=== PATIENT | female | born 1970 | race Caucasian/White ===

== ENCOUNTER → 2019-06-14 17:03 | Outpatient (BNVA) | payer BC, SELFPAY | PROVIDERS: Family Provider Nurse Practitioner Family; PCP Nurse Practitioner Family; Visit Provider Nurse Practitioner Family | DX: R05 Cough (principal); Z20.828 Contact with and (suspected) exposure to other viral communicable diseases | CPT/HCPCS: 87804 ==

== ENCOUNTER → 2019-06-20 11:38 | Outpatient (BNVA) | payer BC, SELFPAY | PROVIDERS: Family Provider Nurse Practitioner Family; PCP Nurse Practitioner Family; Visit Provider Nurse Practitioner Family | DX: I10 Essential (primary) hypertension (principal); Z20.828 Contact with and (suspected) exposure to other viral communicable diseases | CPT/HCPCS: 80053; 85025 ==

== ENCOUNTER → 2020-06-25 14:40 | Outpatient (BNVA) | payer BC, SELFPAY | PROVIDERS: Family Provider Nurse Practitioner Family; PCP Nurse Practitioner Family; Visit Provider Nurse Practitioner Family | DX: I10 Essential (primary) hypertension (principal); M79.662 Pain in left lower leg | CPT/HCPCS: 80053; 80061; 84443; 85025 ==

== ENCOUNTER 2020-06-26 15:07 | Outpatient (CLI) | payer BC, SELFPAY ==
--- NOTE | 2020-06-26 15:15 | USCV_ITS ---
Araseli Arredondo Age: 49 Gender: F : 1970 Exam Date: 06/26/2020 16:06 Ordering Phys: Tresa Mcdowell [employer]PER[employer] Technologist: [email or web address] Exam Location: [facility] – [place] Indication: PAIN IN LEFT CALF PROCEDURES: Venous duplex imaging was performed in only the left lower extremity. The following venous structures were evaluated: common femoral vein, profunda vein, proximal portion of the greater saphenous vein, superficial femoral vein, and the popliteal vein. In addition, the posterior tibial and peroneal trunk were evaluated. Serial compression, augmentation maneuvers, and spectral Doppler flow evaluation were performed. FINDINGS: Normal 2-D Doppler and augmentation and compressibility throughout the lower extremity venous structures. Additional imaging through the proximal calf veins also reveals no thrombus. Limited evaluation of the greater saphenous vein is patent with no thrombus. CONCLUSIONS No DVT left lower extremity. Dr. Desi Villalpando DO (Electronically Signed) Final Date: 27 June 2020 08:48 S
== END 2020-06-26 15:08 | disposition home or self-care (01) ==
PROVIDERS: Family Provider Nurse Practitioner Family; PCP Nurse Practitioner Family; Visit Provider Nurse Practitioner Family
DX: M79.662 Pain in left lower leg (principal)
CPT/HCPCS: 93971

== ENCOUNTER → 2021-08-11 11:14 | Outpatient (BNVA) | payer BC, SELFPAY | PROVIDERS: Family Provider Nurse Practitioner Family; PCP Nurse Practitioner Family; Visit Provider Nurse Practitioner Family | DX: R53.1 Weakness (principal); R53.83 Other fatigue; N92.0 Excessive and frequent menstruation with regular cycle; F32.4 Major depressive disorder, single episode, in partial remission; I10 Essential (primary) hypertension; E66.9 Obesity, unspecified | CPT/HCPCS: 80053; 80061; 82306; 82607; 82746; 83550; 84443 ==

== ENCOUNTER → 2021-11-25 11:27 | Outpatient (BNVA) | payer BC, SELFPAY | PROVIDERS: Family Provider Nurse Practitioner Family; PCP Nurse Practitioner Family; Visit Provider Nurse Practitioner Family | DX: I10 Essential (primary) hypertension (principal); E78.00 Pure hypercholesterolemia, unspecified; D64.9 Anemia, unspecified; L03.90 Cellulitis, unspecified; L01.00 Impetigo, unspecified | CPT/HCPCS: 80053 ==

== ENCOUNTER 2021-12-10 08:09 | Day surgery (SDC) | payer BC, SELFPAY ==
[2021-10-15 16:26] VITALS: BMI 44.5
[2021-12-09 08:21] VITALS: BMI 44.5
[2021-12-10 08:51] VITALS: BP 199/129; PULSE 82; RESP 18; TEMP 36.4; O2SAT 99
[2021-12-10] MEDS: sodium chloride 0.9% 1,000 ML 30 ML IV (08:58)
[2021-12-10 08:59] LABS: OR HCG Qualitative Urine Negative (Negative)
--- NOTE | 2021-12-10 10:44 | P.HP_ITS ---
Providers/Chief Complaint Primary Care Provider: Amelia Mcdaniel NP Chief Complaint: Colon cancer screening History of Present Illness Araseli Arredondo is a 51 year old female here for colonoscopy Medications/Allergies Home Medications Medication Instructions Recorded Confirmed Last Taken Type aspirin 81 mg tablet,delayed 81 mg PO DAILY 06/14/19 12/10/21 12/08/21 History release (Adult Low Dose Aspirin) albuterol sulfate 90 mcg/actuation 2 puff inhalation QID PRN 06/03/21 12/10/21 12/08/21 Rx aerosol inhaler (ProAir HFA) shortness of breath or wheezing #8.5 grams budesonide-formoterol HFA 160 2 puff inhalation Q12H #10.2 grams 06/03/21 12/10/21 12/08/21 Rx mcg-4.5 mcg/actuation aerosol inhaler (Symbicort) cholecalciferol (vitamin D3) 50 50 mcg PO DAILY 90 days #90 caps 08/11/21 12/10/21 12/08/21 Rx mcg (2,000 unit) capsule lisinopril 20 1 tab PO DAILY 90 days #90 tabs 08/11/21 12/10/21 12/08/21 Rx mg-hydrochlorothiazide 25 mg tablet vitamin-ferrous fumarate 1 tab PO DAILY 90 days #90 tabs 08/11/21 12/10/21 12/08/21 Rx 28 mg iron-folic acid 800 mcg tablet ( Vitamins with Minerals) simvastatin 20 mg tablet 20 mg PO .QHS 90 days #90 tabs 08/11/21 12/10/21 12/08/21 Rx sertraline 50 mg tablet (Zoloft) 50 mg PO DAILY 30 days #90 tabs 10/24/21 12/10/21 12/08/21 Rx cephalexin 500 mg capsule 500 mg PO TID 10 days #30 caps 11/24/21 12/10/21 12/08/21 Rx mupirocin 2 % topical ointment 1 applic topical BID #15 grams 11/24/21 12/10/21 12/08/21 Rx Allergies Allergy/AdvReac Type Severity Reaction Status Date / Time No Known Allergies Allergy Verified 12/10/21 08:45 PFSH Acute PFSH: Medical History Hx of menorrhagia Hypertension Surgical History Hx of section Hx of cholecystectomy Hx of tubal ligation Family History Family/Other CAD (coronary artery disease) Cancer Grandmother had colon cancer Diabetes Hypertension Social History Smoking and tobacco status: never smoked Second hand smoke exposure: No Alcohol intake: current Alcohol intake frequency: 0-2 Drinks per Day Alcohol type: beer Lives independently: Yes Household members: spouse Marital status: Current occupational status: employed Current occupation: [employer] History of recent travel: No Current gender identity: Female Vitals/I&O/Wt Last Vital Signs Temp 97.5 F L 12/10/21 08:51 Pulse 82 12/10/21 08:51 Resp 18 12/10/21 08:51 BP 199/129 12/10/21 08:51 Pulse Ox 99 12/10/21 08:51 O2 Del Method 12/10/21 08:51 Weight last 48 hrs Weight 228 lb A&P Assessment and plan (1) Screening for colon cancer: Status: Acute Plan Colonoscopy Attestations Medical Necessity Statement*: Will go home Coding Level of Care 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
--- NOTE | 2021-12-10 11:07 | P.ANESASSM_ITS ---
Pre-Anesthetic Assessment Height/Weight: Height 1.52 m Weight 103.419 kg Temp Pulse Resp BP Pulse Ox O2 Del Method 97.5 F L 82 18 199/129 99 12/10/21 08:51 12/10/21 08:51 12/10/21 08:51 12/10/21 08:51 12/10/21 08:51 12/10/21 08:51 Operation Date: 12/10/21 10:00 Proposed Procedures p Colonoscopy 79066,Z12.11(Not Applicable) - Chris Carvajal DO Familial anesthetic complications: none Last intake: Intake Last Liquid Date 12/09/21 Last Liquid Time 22:00 Last Solid Date 12/08/21 Social Alcohol (6 beers per week.) and No tobacco Airway Submandibular: within normal limits Cervical ROM: within normal limits Mallampati: Class II Dentition: full Pulmonary Bronchitis listed patient denies says it was related to a previous URI CV/HEM Hypertension None reported Hepatic None reported GI None reported Metabolic Hyperlipidemia and Morbid Obesity [facility] [place] None reported Neuropsych None reported Anesthetic Plan ASA status: 3 Anesthesia: MAC Medications/Allergies Home Medications Medication Instructions Recorded Confirmed Last Taken Type aspirin 81 mg tablet,delayed 81 mg PO DAILY 06/14/19 12/10/21 12/08/21 History release (Adult Low Dose Aspirin) albuterol sulfate 90 mcg/actuation 2 puff inhalation QID PRN 06/03/21 12/10/21 12/08/21 Rx aerosol inhaler (ProAir HFA) shortness of breath or wheezing #8.5 grams budesonide-formoterol HFA 160 2 puff inhalation Q12H #10.2 grams 06/03/21 12/10/21 12/08/21 Rx mcg-4.5 mcg/actuation aerosol inhaler (Symbicort) cholecalciferol (vitamin D3) 50 50 mcg PO DAILY 90 days #90 caps 08/11/21 12/10/21 12/08/21 Rx mcg (2,000 unit) capsule lisinopril 20 1 tab PO DAILY 90 days #90 tabs 08/11/21 12/10/21 12/08/21 Rx mg-hydrochlorothiazide 25 mg tablet vitamin-ferrous fumarate 1 tab PO DAILY 90 days #90 tabs 08/11/21 12/10/21 12/08/21 Rx 28 mg iron-folic acid 800 mcg tablet ( Vitamins with Minerals) simvastatin 20 mg tablet 20 mg PO .QHS 90 days #90 tabs 08/11/21 12/10/21 12/08/21 Rx sertraline 50 mg tablet (Zoloft) 50 mg PO DAILY 30 days #90 tabs 10/24/21 12/10/21 12/08/21 Rx cephalexin 500 mg capsule 500 mg PO TID 10 days #30 caps 11/24/21 12/10/21 12/08/21 Rx mupirocin 2 % topical ointment 1 applic topical BID #15 grams 11/24/21 12/10/21 12/08/21 Rx Allergies Allergy/AdvReac Type Severity Reaction Status Date / Time No Known Allergies Allergy Verified 12/10/21 08:45 Current Medications Generic Name Dose Route Start Last Admin Trade Name Freq PRN Reason Stop Dose Admin Sodium Chloride 1,000 mls @ 30 mls/hr 12/10/21 08:30 12/10/21 08:58 Sodium Chloride 0.9% IV 12/11/21 08:29 30 mls/hr .Q24H VASU Administration PFSH Anesthesia Medical History Hx of menorrhagia Hypertension Surgical History Hx of section Hx of cholecystectomy Hx of tubal ligation Family History Family/Other CAD (coronary artery disease) Cancer Grandmother had colon cancer Diabetes Hypertension Social History Smoking and tobacco status: never smoked Second hand smoke exposure: No Alcohol intake: current Alcohol intake frequency: 0-2 Drinks per Day Alcohol type: beer Lives independently: Yes Household members: spouse Marital status: Current occupational status: employed Current occupation: [employer] History of recent travel: No Current gender identity: Female Data Anesthesia Cardiac Studies: No Data to Display
[2021-12-10 12:04] VITALS: BP 136/83; PULSE 89; RESP 16; TEMP 36.9; O2SAT 99
[2021-12-10 12:16] VITALS: BP 136/88; PULSE 90; RESP 18; O2SAT 97
[2021-12-10 12:26] VITALS: BP 147/92; PULSE 85; RESP 18; O2SAT 98
--- NOTE | 2021-12-10 12:38 | PC.NURSE ---
1204-Received pt to post op with oral airway in. Moving air freely. O2 on at 5L per NC. 1213-Pt waking up. Oral airway removed.
--- NOTE | 2021-12-11 09:00 | ANE.PACU2 ---
Inpatient post-anesthesia follow up: Airway intact: Yes Vital signs: Temperature 98.5 F Pulse Rate 85 Respiratory Rate 18 Blood Pressure 147/92 Pulse Oximetry 98 Oxygen Delivery Me thod Room Air Oxygen Flow Rate 2 Fraction of Inspir ed Oxygen Hydration adequate: Yes Nausea and vomiting: No Pain level: 1 Mental status: Baseline
== END 2021-12-10 12:47 | disposition home or self-care (01) ==
PROVIDERS: Anesthesiology; PCP Nurse Practitioner Family; Visit Provider Surgery
PROC: 0DJD8ZZ Inspection of Lower Intestinal Tract, Via Natural or Artificial Opening Endoscopic (ICD-10-PCS; CPT 45378; principal; 2021-12-10 10:00)
DX: Z12.11 Encounter for screening for malignant neoplasm of colon (principal); D12.5 Benign neoplasm of sigmoid colon; I10 Essential (primary) hypertension; E78.5 Hyperlipidemia, unspecified; E66.01 Morbid (severe) obesity due to excess calories; Z68.41 Body mass index [BMI] 40.0-44.9, adult; Z79.82 Long term (current) use of aspirin; Z80.0 Family history of malignant neoplasm of digestive organs
CPT/HCPCS: 45385; 81025; 84703; 88305; J2704; J3490; J7030

== ENCOUNTER 2022-01-23 07:33 | Day surgery (SDC) | payer BC, SELFPAY ==
[2022-01-20 14:02] VITALS: BMI 43.9
[2022-01-23 08:16] VITALS: BP 201/101; PULSE 72; RESP 18; TEMP 36.1; O2SAT 99
[2022-01-23 08:23] LABS: OR HCG Qualitative Urine Negative (Negative)
--- NOTE | 2022-01-23 08:33 | ANES.PREANE2 ---
Pre-Anesthetic Assessment Height/Weight: Height 1.52 m Weight 102.058 kg Temp Pulse Resp BP Pulse Ox O2 Del Method 97 F L 72 18 201/101 99 01/23/22 08:16 01/23/22 08:16 01/23/22 08:16 01/23/22 08:16 01/23/22 08:16 01/23/22 08:16 Preop Diagnosis: Constipation Operation Date: 01/23/22 09:15 Proposed Procedures p Colonoscopy 59683,K59.0(Not Applicable) - Chris Carvajal DO Familial anesthetic complications: none Was Beta Krunal taken within 24 hours: N/A Last intake: Intake Last Liquid Date 01/22/22 Last Liquid Time 00:00 Last Solid Date 01/21/22 Last Solid Time 00:00 Social Alcohol (0-2 beers per day.) Airway Submandibular: within normal limits Cervical ROM: within normal limits Mallampati: Class III Dentition: full Pulmonary None reported CV/HEM Hypertension None reported Hepatic None reported GI None reported Metabolic Hyperlipidemia and Morbid Obesity [facility] [place] None reported Neuropsych Bipolar and Depression Anesthetic Plan ASA status: 3 Anesthesia: MAC Medications/Allergies Home Medications Medication Instructions Recorded Confirmed Last Taken Type aspirin 81 mg tablet,delayed 81 mg PO DAILY 06/14/19 01/23/22 01/16/22 History release (Adult Low Dose Aspirin) albuterol sulfate 90 mcg/actuation 2 puff inhalation QID PRN 06/03/21 01/23/22 01/19/22 Rx aerosol inhaler (ProAir HFA) shortness of breath or wheezing #8.5 grams budesonide-formoterol HFA 160 2 puff inhalation Q12H #10.2 grams 06/03/21 01/23/22 01/19/22 Rx mcg-4.5 mcg/actuation aerosol inhaler (Symbicort) cholecalciferol (vitamin D3) 50 50 mcg PO DAILY 90 days #90 caps 08/11/21 01/23/22 01/21/22 Rx mcg (2,000 unit) capsule lisinopril 20 1 tab PO DAILY 90 days #90 tabs 08/11/21 01/23/22 01/22/22 Rx mg-hydrochlorothiazide 25 mg tablet vitamin-ferrous fumarate 1 tab PO DAILY 90 days #90 tabs 08/11/21 01/23/22 01/21/22 Rx 28 mg iron-folic acid 800 mcg tablet ( Vitamins with Minerals) simvastatin 20 mg tablet 20 mg PO .QHS 90 days #90 tabs 08/11/21 01/23/22 01/21/22 Rx sertraline 50 mg tablet (Zoloft) 50 mg PO DAILY 30 days #90 tabs 10/24/21 01/23/22 01/21/22 Rx Allergies Allergy/AdvReac Type Severity Reaction Status Date / Time No Known Allergies Allergy Verified 01/20/22 13:57 [facility] Anesthesia Medical History Hx of menorrhagia Hypertension Surgical History Hx of section Hx of cholecystectomy Hx of tubal ligation Family History Family/Other CAD (coronary artery disease) Cancer Grandmother had colon cancer Diabetes Hypertension Social History Smoking and tobacco status: never smoked Second hand smoke exposure: No Alcohol intake: current Alcohol intake frequency: 0-2 Drinks per Day Alcohol type: beer Lives independently: Yes Household members: spouse Marital status: Current occupational status: employed Current occupation: [employer] History of recent travel: No Current gender identity: Female Female Reproductive History Date of last menstrual period: 12/04/21 Data Anesthesia Cardiac Studies: No Data to Display
[2022-01-23] MEDS: sodium chloride 0.9% 1,000 ML 30 ML IV (08:35)
--- NOTE | 2022-01-23 08:45 | PM.HP ---
Providers/Chief Complaint Primary Care Provider: Amelia Mcdaniel NP Chief Complaint: History of colon polyp History of Present Illness Araseli Arredondo is a 51 year old female here for colonoscopy Medications/Allergies Home Medications Medication Instructions Recorded Confirmed Last Taken Type aspirin 81 mg tablet,delayed 81 mg PO DAILY 06/14/19 01/23/22 01/16/22 History release (Adult Low Dose Aspirin) albuterol sulfate 90 mcg/actuation 2 puff inhalation QID PRN 06/03/21 01/23/22 01/19/22 Rx aerosol inhaler (ProAir HFA) shortness of breath or wheezing #8.5 grams budesonide-formoterol HFA 160 2 puff inhalation Q12H #10.2 grams 06/03/21 01/23/22 01/19/22 Rx mcg-4.5 mcg/actuation aerosol inhaler (Symbicort) cholecalciferol (vitamin D3) 50 50 mcg PO DAILY 90 days #90 caps 08/11/21 01/23/22 01/21/22 Rx mcg (2,000 unit) capsule lisinopril 20 1 tab PO DAILY 90 days #90 tabs 08/11/21 01/23/22 01/22/22 Rx mg-hydrochlorothiazide 25 mg tablet vitamin-ferrous fumarate 1 tab PO DAILY 90 days #90 tabs 08/11/21 01/23/22 01/21/22 Rx 28 mg iron-folic acid 800 mcg tablet ( Vitamins with Minerals) simvastatin 20 mg tablet 20 mg PO .QHS 90 days #90 tabs 08/11/21 01/23/22 01/21/22 Rx sertraline 50 mg tablet (Zoloft) 50 mg PO DAILY 30 days #90 tabs 10/24/21 01/23/22 01/21/22 Rx Allergies Allergy/AdvReac Type Severity Reaction Status Date / Time No Known Allergies Allergy Verified 01/20/22 13:57 PFSH Acute PFSH: Medical History Hx of menorrhagia Hypertension Surgical History Hx of section Hx of cholecystectomy Hx of tubal ligation Family History Family/Other CAD (coronary artery disease) Cancer Grandmother had colon cancer Diabetes Hypertension Social History Smoking and tobacco status: never smoked Second hand smoke exposure: No Alcohol intake: current Alcohol intake frequency: 0-2 Drinks per Day Alcohol type: beer Lives independently: Yes Household members: spouse Marital status: Current occupational status: employed Current occupation: [employer] History of recent travel: No Current gender identity: Female Female Reproductive History: Date of last menstrual period: 12/04/21 Vitals/I&O/Wt Last Vital Signs Temp 97 F L 01/23/22 08:16 Pulse 72 01/23/22 08:16 Resp 18 01/23/22 08:16 BP 201/101 01/23/22 08:16 Pulse Ox 99 01/23/22 08:16 O2 Del Method 01/23/22 08:16 A&P Assessment and plan (1) Tubulovillous adenoma: Plan Colonoscopy Attestations Medical Necessity Statement*: Home Coding Level of 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
[2022-01-23 09:47] VITALS: BP 166/97; PULSE 86; RESP 20; TEMP 36.6; O2SAT 99
--- NOTE | 2022-01-23 09:51 | ANE.PACU2 ---
Inpatient post-anesthesia follow up: Airway intact: Yes Vital signs: Temperature 98 F Pulse Rate 86 Respiratory Rate 20 Blood Pressure 166/97 Pulse Oximetry 99 Oxygen Delivery Me thod Room Air Oxygen Flow Rate Fraction of Inspir ed Oxygen Hydration adequate: Yes Nausea and vomiting: No Pain level: 1 Mental status: Baseline
[2022-01-23 10:00] VITALS: BP 212/98; PULSE 83; RESP 16; O2SAT 99
== END 2022-01-23 10:17 | disposition home or self-care (01) ==
PROVIDERS: Anesthesiology; PCP Nurse Practitioner Family; Visit Provider Surgery
PROC: 0DJD8ZZ Inspection of Lower Intestinal Tract, Via Natural or Artificial Opening Endoscopic (ICD-10-PCS; CPT 45378; principal; 2022-01-23 09:15)
PROC: 0DJD8ZZ Inspection of Lower Intestinal Tract, Via Natural or Artificial Opening Endoscopic (ICD-10-PCS; CPT 45330; 2022-01-23 09:15)
DX: K59.00 Constipation, unspecified (principal); Z79.82 Long term (current) use of aspirin; D12.5 Benign neoplasm of sigmoid colon; I10 Essential (primary) hypertension; E78.5 Hyperlipidemia, unspecified; E66.01 Morbid (severe) obesity due to excess calories; Z68.41 Body mass index [BMI] 40.0-44.9, adult
CPT/HCPCS: 45338; 81025; 84703; 88305; J2704; J7030

== ENCOUNTER 2022-02-17 01:00 | Outpatient (CLI) | payer BC, SELFPAY | END 2022-02-17 23:00 | disposition home or self-care (01) | LOC: RAD 03-04 10:05 | PROVIDERS: PCP Nurse Practitioner Family; Visit Provider Nurse Practitioner Family | DX: E78.00 Pure hypercholesterolemia, unspecified (principal) | CPT/HCPCS: 80053; 80061 ==

== ENCOUNTER 2022-04-20 08:10 | Outpatient (CLI) | payer BC, SELFPAY ==
--- NOTE | 2022-04-20 08:45 | US_ITS ---
WS: [id number] RIGHT UPPER QUADRANT ULTRASOUND HISTORY: ELEVATED LIVER ENZYMES COMPARISON: None available. Liver: 15.7 cm in length. Normal size liver. No bile duct dilatation or mass. Portal Vein: Normal hepatopetal flow with monophasic waveform. Gallbladder: Status post cholecystectomy. CBD: 0.3 cm Pancreas: Poorly visualized pancreas. Only a small portion of the body is visualized and normal. Head and tail are not visualized. Right kidney: 11.2 cm in length. Normal size and echogenicity. No hydronephrosis or mass. Aorta and IVC: Unremarkable abdominal aorta and IVC. No ascites. US/US liver [id number] IMPRESSION: 1. Status post cholecystectomy. 2. No bile duct dilatation.
== END 2022-04-20 08:11 | disposition home or self-care (01) ==
PROVIDERS: PCP Nurse Practitioner Family; Visit Provider Nurse Practitioner Family
DX: K76.0 Fatty (change of) liver, not elsewhere classified (principal); R74.8 Abnormal levels of other serum enzymes; Z90.49 Acquired absence of other specified parts of digestive tract
CPT/HCPCS: 76705

== ENCOUNTER → 2022-07-28 11:10 | Outpatient (BNVA) | payer BC, SELFPAY | PROVIDERS: PCP Nurse Practitioner Family; Visit Provider Nurse Practitioner Family | DX: E78.2 Mixed hyperlipidemia (principal); K76.0 Fatty (change of) liver, not elsewhere classified; R23.0 Cyanosis; E55.9 Vitamin D deficiency, unspecified; E78.00 Pure hypercholesterolemia, unspecified; I10 Essential (primary) hypertension | CPT/HCPCS: 80053; 80061; 82306 ==

== ENCOUNTER → 2022-08-12 09:33 | Outpatient (BNVA) | payer BC, SELFPAY | PROVIDERS: PCP Nurse Practitioner Family; Visit Provider Nurse Practitioner Family | DX: K04.7 Periapical abscess without sinus (principal); K08.89 Other specified disorders of teeth and supporting structures; L03.90 Cellulitis, unspecified | CPT/HCPCS: 80053 ==

== ENCOUNTER → 2022-09-30 16:50 | Outpatient (BNVA) | payer BC, SELFPAY | PROVIDERS: PCP Nurse Practitioner Family; Visit Provider Nurse Practitioner Family | DX: T14.8XXA Other injury of unspecified body region, initial encounter (principal); W57.XXXA Bitten or stung by nonvenomous insect and other nonvenomous arthropods, initial encounter; L03.90 Cellulitis, unspecified; T78.40XA Allergy, unspecified, initial encounter | CPT/HCPCS: 80053; 82785; 86003; 86618; 86666; 86757 ==

== ENCOUNTER → 2022-11-06 16:38 | Outpatient (BNVA) | payer BC, SELFPAY | PROVIDERS: PCP Nurse Practitioner Family; Visit Provider Nurse Practitioner Family | DX: M25.562 Pain in left knee (principal) | CPT/HCPCS: 73562 ==

== ENCOUNTER 2023-07-03 20:17 | Emergency (ER) | payer BC, SELFPAY ==
[2023-07-03] VITALS (7 sets, daily range): BP systolic 185–205; BP diastolic 106–135; PULSE 86–104; RESP 16–35; TEMP 36.8; O2SAT 93–96; BMI 44.9
--- NOTE | 2023-07-03 21:35 | CTR_ITS ---
PROCEDURE INFORMATION: Exam: CT Neck With Contrast Exam date and time: 07/03/2023 9:47 PM Age: 52 years old Clinical indication: Mass, lump, or swelling in neck; Bilateral; Neck pain; Patient HX: Diffuse pain, swelling, and redness to entire submandibular region. ; Additional info: Lugwig's angina TECHNIQUE: Imaging protocol: Computed tomography of the neck with contrast. Radiation optimization: All CT scans at this facility use at least one of these dose optimization techniques: automated exposure control; mA and/or kV adjustment per patient size (includes targeted exams where dose is matched to clinical indication); or iterative reconstruction. Contrast material: OMNI 350; Contrast volume: 100 ml; Contrast route: INTRAVENOUS (IV); COMPARISON: No relevant prior studies available. RADIATION DOSE METRICS: Total DLP (mGy-cm): 320.2 FINDINGS: Oral cavity: 1.6 x 1.5 x 1.3 cm abscess in the right sublingual space. Dental: Poor dentition with bilateral areas of cavities of the enamel portion of the tooth and/or periapical lucencies/tooth abscesses. Periapical lucency/tooth abscess in the right mandibular 2nd molar with dehiscence of the medial cortex of the mandible. Small 0.8 x 0.6 x 0.4 cm soft tissue abscess medial to the right mandibular tooth abscess with small air-fluid level. Axial series 4, image 38. Coronal series 6, image 39. Additional tooth abscesses involving the left 2nd maxillary and mandibular molars. Pharynx: Soft tissue swelling obliterating the right vallecula and right piriform sinus with deviation of the oral airway to the left of midline consistent with severe pharyngitis. Larynx: Increased swelling of the right aryepiglottic fold consistent with laryngitis with inflammation in the soft tissues surrounding the posterior portion of the right hyoid bone. Prevertebral and retropharyngeal spaces: Unremarkable. Salivary glands: Normal. Glands are normal in size. Thyroid: Normal. No enlarged or calcified nodules. Lymph nodes: Mild right submandibular and right cervical reactive lymphadenopathy. Trachea: Visualized trachea is unremarkable. Lungs: Unremarkable as visualized. Bones/joints: See Dental finding. Soft tissues: Swelling/myositis of the inferior portion of the right medial pterygoid muscle which is adjacent to the soft tissue abscess. Prominent soft tissue swelling of the right sublingual tongue consistent with cellulitis. CT/CT neck w con* [id number] IMPRESSION: 1. Periapical lucency/tooth abscess in the right mandibular 2nd molar with dehiscence of the medial cortex of the mandible. 2. Small 0.8 x 0.6 x 0.4 cm soft tissue abscess medial to the right mandibular tooth abscess with small air-fluid level. Axial series 4, image 38. Coronal series 6, image 39. 3. Swelling/myositis of the inferior portion of the right medial pterygoid muscle which is adjacent to the soft tissue abscess. 4. Prominent soft tissue swelling of the right sublingual tongue consistent with cellulitis. 5. 1.6 x 1.5 x 1.3 cm abscess in the right sublingual space. 6. Mild right submandibular and right cervical reactive lymphadenopathy. 7. Soft tissue swelling obliterating the right vallecula and right piriform sinus with deviation of the oral airway to the left of midline consistent with severe pharyngitis. 8. Increased swelling of the right aryepiglottic fold consistent with laryngitis with inflammation in the soft tissues surrounding the posterior portion of the right hyoid bone. 9. Additional tooth abscesses involving the left 2nd maxillary and mandibular molars.
[2023-07-03] MEDS: iohexol 350 mg/mL 500 mL Btl (per mL) IV (21:54)
[2023-07-03] MEDS: dexamethasone 10 mg/mL INJ IVP (22:00)
[2023-07-03] MEDS: clindamycin 900 MG/50 ML PREMIX 100 MG IV (22:01)
--- NOTE | 2023-07-03 22:02 | ED_ITS ---
HPI - Dental/Oral 2 General: Chief complaint: Dental/Oral Stated complaint: right side and front mouth pain, blisters swollen Time Seen by Provider: 07/03/23 21:12 History of Present Illness: 82-year-old female presents with lower j aw pain and swelling. She says that the pain is worse on the right side, where she was diagnosed with a tooth abscess by dentist earlier this week. She has been on 3 days of penicillin, without improvement. Swelling has gotten worse. She notes that is hard to open her jaw. She feels like she has had a temperature on and off. Associated symptoms: Reports fever(s) Review of Systems 2 Const: Reports: fever(s) and chills ENMT: Reports: throat pain, oral sores, dental pain and sinus pain; Denies: bleeding gums, ear discharge, nasal discharge, nasal obstruction or epistaxis Resp: Denies: dyspnea GI: Reports: nausea; Denies: abdominal pain or vomiting Skin/Breast: Denies: rash PFSH ED 2 PFSH: Medical History Tubular adenoma of colon Hx of menorrhagia Hypertension Surgical History Hx of cholecystectomy Hx of section Hx of tubal ligation Family History Family/Other CAD (coronary artery disease) Cancer Grandmother had colon cancer Diabetes Hypertension Social History Smoking and tobacco/nicotine status: never used tobacco/nicotine Second hand smoke exposure: No Alcohol intake: current Alcohol intake frequency: 0-2 Drinks per Day Alcohol type: beer Substance/Drug Use: never Lives independently: Yes Household members: spouse Marital status: Current occupational status: employed Current occupation: [employer] Current gender identity: Female Physical Exam 2 Const: COMMON NORMALS: no acute distress GENERAL APPEARANCE: cooperative and ill appearing; not frail appearing HENMT: COMMON NORMALS: normocephalic and Normal external nose present HEAD & SCALP: normocephalic FACE & SINUS: face symmetric NOSE: Normal external nose present MOUTH: Abnormal oral and palatal mucosa present edematous; no drooling and tongue not abnormal THROAT: uvula midline Eye: COMMON NORMALS: Equal, round and reactive pupils present and EOMs intact bilaterally PUPIL: Yes Equal, round and reactive pupils present Neck/C-Spine: GENERAL: Yes trachea midline Chest: CHEST: Yes Symmetrical chest wall rise Resp: COMMON NORMALS: normal respiratory effort, No retractions, No use of accessory muscles and clear to auscultation bilaterally AUSCULTATION: clear to auscultation bilaterally Cardio: COMMON NORMALS: regular rate and regular rhythm RATE: regular rate RHYTHM: regular rhythm GI: COMMON NORMALS: Normal to inspection, nondistended, normoactive bowel sounds present Extremity: COMMON NORMALS: no pedal edema Neuro: NICOLE COMA SCALE: document GCS findings Nicole coma scale eye opening: Spontaneous Nicole coma scale verbal response: Orientated [place] coma scale motor response: Obey commands [place] coma scale total score: 15 S ENSORY EXAM: Yes extremities (intact) Psych: COMMON NORMALS: speech normal SPEECH: Yes normal speech Skin: COMMON NORMALS: no rashes or lesions noted GENERAL SKIN EXAM: no rashes or lesions noted Course 2 Vital Signs: Vital signs: Vital Signs Temperature 98.2 F 07/03/23 20:28 Pulse Rate 87 07/03/23 23:03 Respiratory Rate 19 H 07/03/23 23:03 Blood Pressure 188/118 07/03/23 23:03 Pulse Oximetry 94 07/03/23 23:03 Oxygen Delivery Me thod Room Air 07/03/23 23:03 MDM - Dental/Oral Medical Decision Making Patient has exam findings concerning for possible Kenneth's angina. She is afebrile however. Her white blood cell count is 10.5. Potassium is 3.3. CRP is significantly elevated at 137. CT of the soft tissues of the neck reveals tooth abscess with abscess in the sublingual versus place with significant soft tissue swelling consistent with severe pharyngitis. Spoke with ENT surgery at [facility]. Recommendations are antibiotics and dexamethasone, both of which have been given. I just checked on the patient. She is maintaining a saturation of 95% and above, respirations are 18, heart rate 82. She is maintaining her airway, and oral secretions well. She will go by transfer to [facility] ER in [place] for clinical recheck prior to going to the floor. She will require ACLS transfer. If no ground ACLS crew's are available tonight, she will have to go by air EMS due to continued concern over her airway. Clinically, she remained stable for transport at this point. Lab Data 07/03/23 22:00 07/03/23 22:[address] 07/03/23 21:35 IMPRESSION: 1. Periapical lucency/tooth abscess in the right mandibular 2nd molar with dehiscence of the medial cortex of the mandible. 2. Small 0.8 x 0.6 x 0.4 cm soft tissue abscess medial to the right mandibular tooth abscess with small air-fluid level. Axial series 4, image 38. Coronal series 6, image 39. 3. Swelling/myositis of the inferior portion of the right medial pterygoid muscle which is adjacent to the soft tissue abscess. 4. Prominent soft tissue swelling of the right sublingual tongue consistent with cellulitis. 5. 1.6 x 1.5 x 1.3 cm abscess in the right sublingual space. 6. Mild right submandibular and right cervical reactive lymphadenopathy. 7. Soft tissue swelling obliterating the right vallecula and right piriform sinus with deviation of the oral airway to the left of midline consistent with severe pharyngitis. 8. Increased swelling of the right aryepiglottic fold consistent with laryngitis with inflammation in the soft tissues surrounding the posterior portion of the right hyoid bone. 9. Additional tooth abscesses involving the left 2nd maxillary and mandibular molars. ADDENDUM: 07/03/23 4522 THIS REPORT CONTAINS FINDINGS THAT MAY BE CRITICAL TO PATIENT CARE. The findings were verbally communicated via telephone conference with GONZÁLEZ CURRIE at 10:51 PM CDT on 07/03/2023. The findings were acknowledged and understood. Laboratory Results WBC 10.53 10^3/uL (3.29-11.43) 07/03/23 22:00 RBC 4.79 10^6/uL (3.85-5.65) 07/03/23 22:00 Hgb 11.30 g/dL (11.27-16.99) 07/03/23 22:00 Hct 35.4 % (36-47) L 07/03/23 22:00 MCV 73.9 fl (85-98) L 07/03/23 22:00 MCH 23.6 pg (27-33) L 07/03/23 22:00 MCHC 31.9 g/dL (30-55) 07/03/23 22:00 RDW 15.7 % (12.1-15.1) H 07/03/23 22:00 Plt Count 157 10^3/cmm (157-399) 07/03/23 22:00 MPV 8.5 fL (7.4-10.4) 07/03/23 22:00 Neut % (Auto) 76.3 % 07/03/23 22:00 Lymph % (Auto) 13.1 % 07/03/23 22:00 [place] % (Auto) 9.9 % 07/03/23 22:00 Eos % (Auto) 0.2 % 07/03/23 22:00 Baso % (Auto) 0.3 % 07/03/23 22:00 Neut # (Auto) 8.04 10^3/uL (1.8-7.7) H 07/03/23 22:00 Lymph # (Auto) 1.4 10^3/uL (0.8-4.8) 07/03/23 22:00 [place] # (Auto) 1.0 10^3/uL (0.2-0.9) H 07/03/23 22:00 Eos # (Auto) 0.0 10^3/uL (0.0-0.8) 07/03/23 22:00 Baso # (Auto) 0.0 10^3/uL (0.0-0.1) 07/03/23 22:00 Nucleated RBC % (auto) 0 % 07/03/23 22:00 Nucleated RBCs # 0.0 /100WBC 07/03/23 22:00 Sodium 134 mmol/L (136-145) L 07/03/23 22:00 Potassium 3.3 mmol/L (3.5-5.1) L 07/03/23 22:00 Chloride 98 mmol/L (98-107) 07/03/23 22:00 Carbon Dioxide 24 mmol/L (22-29) 07/03/23 22:00 Anion Gap 15.3 (5-19) 07/03/23 22:00 BUN 14 mg/dL (6-20) 07/03/23 22:00 Creatinine 0.6 mg/dL (0.5-0.9) 07/03/23 22:00 GFR Calculation 105.0 mL/min (90-130) 07/03/23 22:00 Glucose 164 mg/dL (65-115) H 07/03/23 22:00 Calculated Osmolality 282 mOsm/kg (285-295) L 07/03/23 22:00 Lactic Acid 0.9 mmol/L (0.5-2.2) 07/03/23 22:12 Calcium 8.1 mg/dL (8.5-10.5) L 07/03/23 22:00 Total Bilirubin 0.6 mg/dL (0.15-1.2) 07/03/23 22:00 AST 22 U/L (0-32) 07/03/23 22:00 ALT 30 U/L (0-33) 07/03/23 22:00 Alkaline Phosphatase 125 U/L (35-105) H 07/03/23 22:00 C-Reactive Protein 137.3 mg/L (0.0-4.9) H 07/03/23 22:00 Total Protein 6.3 g/dL (6.6-8.7) L 07/03/23 22:00 Albumin 3.3 g/dL (3.5-5.2) L 07/03/23 22:00 Globulin 3.0 g/dL (1.3-4.6) 07/03/23 22:00 All radiology interpretation(s) finalized by discharge Discharge Plan Discharge Patient Disposition: Xfer Short-Term Hosp Clinical Impression: Angina, Kenneth Condition: Fair Prescriptions: No Action aspirin [Adult Low Dose Aspirin] 81 mg tablet,delayed release (DR/EC) 81 mg PO DAILY albuterol sulfate [ProAir HFA] 90 mcg/actuation HFA aerosol inhaler 2 puff inhalation QID PRN (Reason: shortness of breath or wheezing) Qty: 8.5 6RF budesonide-formoterol [Symbicort] 160-4.5 mcg/actuation HFA aerosol inhaler 2 puff inhalation Q12H Qty: 10.2 6RF doxycycline hyclate 100 mg capsule 100 mg PO BID 10 Days Qty: 20 0RF mupirocin calcium 2 % cream 1 applic topical TID Qty: 30 1RF fluconazole [Diflucan] 200 mg tablet 200 mg PO DAILY 7 Days Qty: 7 0RF triamcinolone acetonide 0.1 % cream 1 applic topical TID Qty: 454 1RF cholecalciferol (vitamin D3) 50 mcg (2,000 unit) capsule 50 mcg PO DAILY 90 Days Qty: 90 1RF cyclobenzaprine 10 mg tablet 10 mg PO TID PRN (Reason: muscle spasm) Qty: 90 1RF vit-iron fum-folic ac [ Vitamin with Minerals] 28 mg iron- 800 mcg tablet 1 tab PO DAILY 90 Days Qty: 90 1RF simvastatin 20 mg tablet 20 mg PO .QHS 90 Days Qty: 90 1RF sertraline [Zoloft] 50 mg tablet 50 mg PO DAILY 90 Days Qty: 90 1RF Hold Instructions: hold while taking contrave amlodipine 2.5 mg tablet 2.5 mg PO DAILY Qty: 30 0RF pramoxine-zinc acetate 1-0.1 % lotion 1 applic topical QID PRN (Reason: skin irritation) Qty: 177 0RF potassium chloride [Klor-Con M20] 20 mEq tablet,ER particles/crystals 20 meq PO DAILY 30 Days Qty: 30 0RF hydroxyzine HCl 25 mg tablet See Rx Instructions .ROUTE .COMPLEX Qty: 90 0RF Dose Instruction: TAKE 1 TABLET BY MOUTH 4 TIMES DAILY NEEDED FOR ITCHING Rx Instructions: TAKE 1 TABLET BY MOUTH 4 TIMES DAILY NEEDED FOR ITCHING meloxicam 15 mg tablet See Rx Instructions .ROUTE .COMPLEX Qty: 30 0RF Dose Instruction: Take 1 tablet by mouth once daily for 30 days Rx Instructions: Take 1 tablet by mouth once daily for 30 days lisinopril-hydrochlorothiazide 20-25 mg tablet 1 tab PO DAILY 90 Days Qty: 90 0RF Rx Instructions: labs due Referrals: Amelia Mcdaniel NP [Primary Care Provider] - Coding Level of Care Code ED [employer] for [facility]
[2023-07-03 22:18] LABS: Basophils % 0.3 %; Eosinophils % 0.2 %; Hematocrit 35.4 % (36-47); Lymphocytes # 1.4 10^3/uL (0.8-4.8); Lymphocytes % 13.1 %; Mean Corpuscular HGB Conc 31.9 g/dL (30-55); Mean Corpuscular Hemoglobin 23.6 pg (27-33); Mean Corpuscular Volume 73.9 fl (85-98); Mean Platelet Volume 8.5 fL (7.4-10.4); Monocytes % 9.9 %; Neutrophils # 8.04 10^3/uL (1.8-7.7); Neutrophils % 76.3 %; Nucleated Red Blood Cells % 0 %; Platelet Count 157 10^3/cmm (157-399); Red Blood Count 4.79 10^6/uL (3.85-5.65); Red Cell Distribution Width 15.7 % (12.1-15.1); White Blood Count 10.53 10^3/uL (3.29-11.43)
[2023-07-03] MEDS: metoprolol tartrate 1 mg/1 mL SDV 5 mL 5 MG IVP (22:18)
[2023-07-03 22:40] LABS: Alanine Aminotransferase 30 U/L (0-33); Albumin Level 3.3 g/dL (3.5-5.2); Alkaline Phosphatase 125 U/L (35-105); Anion Gap 15.3 (5-19); Aspartate Amino Transferase 22 U/L (0-32); Blood Urea Nitrogen 14 mg/dL (6-20); C Reactive Protein 137.3 mg/L (0.0-4.9); Calcium 8.1 mg/dL (8.5-10.5); Carbon Dioxide 24 mmol/L (22-29); Chloride 98 mmol/L (98-107); Creatinine Clr Calc Pharmacy 119.5249; Glucose 164 mg/dL (65-115); Osmolality Calculated 282 mOsm/kg (285-295); Potassium 3.3 mmol/L (3.5-5.1); Sodium 134 mmol/L (136-145); Total Bilirubin 0.6 mg/dL (0.15-1.2); Total Protein 6.3 g/dL (6.6-8.7)
[2023-07-03 22:41] LABS: Lactic Sepsis W/Reflex 0.9 mmol/L (0.5-2.2)
[2023-07-03] MEDS: ondansetron 2 mg/ML SDV 2 mL 4 MG IVP (23:00)
[2023-07-03] MEDS: ketorolac 30 mg/mL INJ 15 MG IVP (23:00)
[2023-07-03] MEDS: morphine 4 mg/mL SDV 1 mL IVP (23:00)
--- NOTE | 2023-07-03 23:41 | PC.NURSE ---
Patient report called to [facility]. Report given to Madalyn Che RN. All questions and concerns were addressed at time of report.
== END 2023-07-04 00:07 | disposition short-term general hospital (02) ==
PROVIDERS: Emergency Provider Emergency Medicine; PCP Nurse Practitioner Family
DX: K12.2 Cellulitis and abscess of mouth (principal); Z79.82 Long term (current) use of aspirin; I10 Essential (primary) hypertension
CPT/HCPCS: 70491; 80053; 83605; 85025; 86140; 96365; 96375; 99285; J1100; J1885; J2270; J2405; J3490; Q9967

== ENCOUNTER → 2023-08-16 13:09 | Outpatient (BNVA) | payer BC, SELFPAY | PROVIDERS: PCP Nurse Practitioner Family; Visit Provider Nurse Practitioner Family | DX: I10 Essential (primary) hypertension (principal); E78.2 Mixed hyperlipidemia | CPT/HCPCS: 80053; 80061; 84443; 85007; 85027 ==

== ENCOUNTER → 2023-11-24 11:00 | Outpatient (BNVA) | payer BC, SELFPAY | PROVIDERS: Visit Provider Nurse Practitioner Family | DX: I10 Essential (primary) hypertension (principal); F33.41 Major depressive disorder, recurrent, in partial remission; E55.9 Vitamin D deficiency, unspecified; E78.2 Mixed hyperlipidemia; K76.0 Fatty (change of) liver, not elsewhere classified; R73.9 Hyperglycemia, unspecified; E66.01 Morbid (severe) obesity due to excess calories | CPT/HCPCS: 80053; 80061; 82306; 83036; 84443; 85025 ==